=== PATIENT | male | born 1955 | race Caucasian/White ===

== ENCOUNTER 2019-09-26 22:25 | Emergency (ER) | payer OTHER ==
[~2019-09-26] VITALS: Ht 177.8 cm; Wt 83.9 kg
--- NOTE | 2019-09-26 23:12 | PHYS DOC ---
Adult General Chief Complaint Chief Complaint: COUGH HPI HPI 63-year-old male presents with 3-4 day history of cough, nasal congestion, and body aches. The patient started out with just a cough but now has diffuse body aches and a runny nose. It has gotten worse today and he decided to get evaluated. Patient has a history of COPD. He has had productive cough with greenish sputum. He does not believe he's had a fever but has not measured one. He has been on breathing treatments in the past, but is not currently on any. He has no other complaints at this time. Review of Systems Review of Systems Constitutional: Denies fever or chills [] Eyes: Denies change in visual acuity, redness, or eye pain [] HENT: Nasal congestion [] Respiratory: Off with mild shortness of breath [] Cardiovascular: No additional information not addressed in HPI [] GI: Denies abdominal pain, nausea, vomiting, bloody stools or diarrhea [] : Denies dysuria or hematuria [] Musculoskeletal: Denies back pain or joint pain [] Integument: Denies rash or skin lesions [] Neurologic: Denies headache, focal weakness or sensory changes [] Endocrine: Denies polyuria or polydipsia [] All other systems were reviewed and found to be within normal limits, except as documented in this note. Allergies Allergies Allergies Coded Allergies Type Severity Reaction Last Updated Verified Penicillins Allergy Unknown 09/26/19 Yes fish derived Allergy Unknown 09/26/19 Yes Physical Exam Physical Exam Constitutional: Well developed, well nourished, no acute distress, non-toxic appearance. [] HENT: Normocephalic, atraumatic, bilateral external ears normal, oropharynx moist, no oral exudates, nose normal. [] Eyes: PERRLA, EOMI, conjunctiva normal, no discharge. [] Neck: Normal range of motion, no tenderness, supple, no stridor. [] Cardiovascular:Heart rate regular rhythm, no murmur [] Lungs & Thorax: Bilateral breath sounds diminished but clear to auscultation [] Abdomen: Bowel sounds normal, soft, no tenderness, no masses, no pulsatile masses. [] Skin: Warm, dry, no erythema, no rash. [] Back: No tenderness, no CVA tenderness. [] Extremities: No tenderness, no cyanosis, no clubbing, ROM intact, no edema. [] Neurologic: Alert and oriented X 3, normal motor function, normal sensory function, no focal deficits noted. [] Psychologic: Affect normal, judgement normal, mood normal. [] Current Patient Data Vital Signs Vital Signs Date Time Temp Pulse Resp B/P (MAP) Pulse Ox O2 Delivery O2 Flow Rate FiO2 09/26/19 22:46 97.8 74 22 142/72 (95) 97 Room Air EKG EKG [] Radiology/Procedures Radiology/Procedures [] Impressions: Preliminary interpretation chest x-ray: No acute cardiopulmonary findings. Course & Med Decision Making Course & Med Decision Making Pertinent Labs and Imaging studies reviewed. (See chart for details) The patient's labs are unremarkable. His influenza is negative. Given his history of COPD, this could be an early exacerbation or just viral URI with cough. I will treat him with 125 of Solu-Medrol and an albuterol inhaler with spacer. Believe the single treatment should be sufficient given he does not have any wheezing at this time. He is stable for discharge at this time. [] Dragon Disclaimer Dragon Disclaimer This electronic medical record was generated, in whole or in part, using a voice recognition dictation system. Departure Departure: Impression: Primary Impression: Viral URI with cough Disposition: HOME, SELF-CARE Condition: STABLE Referrals: PCPCHARLES (PCP) Patient Instructions: Upper Respiratory Infection, Adult, Lahu-er-Eodv ROLAND JONES DO Sep 26, 2019 23:12
[2019-09-26] MEDS ORDERED: OXYMETAZOLINE 0.05% NASAL SPRAY 15ML BOTTLE. NS ONE (23:15)
[2019-09-27 00:02] LABS: BASO % 1 % (0-3); EOS # 0.3 x10^3/uL (0.0-0.7); EOS % 4 % (0-3); HEMATOCRIT 45.5 % (39.0-53.0); HEMOGLOBIN 15.7 g/dL (13.0-17.5); LYMPH # 2.4 x10^3/uL (1.0-4.8); LYMPH % 33 % (24-48); MEAN CORPUSCULAR HEMOGLOBIN 33 pg (25-35); MEAN CORPUSCULAR HGB CONC 35 g/dL (31-37); MEAN CORPUSCULAR VOLUME 96 fL (79-100); MONO # 0.8 x10^3/uL (0.0-1.1); MONO % 11 % (0-9); NEUT # 3.7 x10^3uL (1.8-7.7); NEUT % 52 % (31-73); PLATELET COUNT 167 x10^3/uL (140-400); RED BLOOD COUNT 4.75 x10^6/uL (4.30-5.70); RED CELL DISTRIBUTION WIDTH 12.7 % (11.5-14.5); WHITE BLOOD COUNT 7.2 x10^3/uL (4.0-11.0)
[2019-09-27 00:10] LABS: CALCIUM 8.5 mg/dL (8.5-10.1); CREATININE 0.9 mg/dL (0.7-1.3); GFR 84.7; POTASSIUM 3.5 mmol/L (3.5-5.1)
[2019-09-27 00:14] LABS: INFLUENZA A PATIENT NEGATIVE (NEGATIVE); INFLUENZA B PATIENT NEGATIVE (NEGATIVE)
[2019-09-27 00:17] LABS: ALBUMIN 3.5 g/dL (3.4-5.0); ALBUMIN/GLOBULIN RATIO 1.3 (1.0-1.7); TOTAL BILIRUBIN 0.4 mg/dL (0.2-1.0); TOTAL PROTEIN 6.3 g/dL (6.4-8.2)
[2019-09-27 00:30] VITALS: BP 138/68
[2019-09-27] MEDS ORDERED: methylPREDNISolone SOD SUCC PF 125 MG/2 ML VIAL. IV ONE (00:30)
[2019-09-27] MEDS ORDERED: ALBUTEROL SULFATE 8GM INHALER. INH ONE (00:30)
[2019-09-27] MEDS ORDERED: methylPREDNISolone SOD SUCC PF 125 MG/2 ML VIAL. ONE (00:35)
[2019-09-27] MEDS ORDERED: ALBUTEROL SULFATE 8GM INHALER. ONE (00:35)
[2019-09-27] MEDS ORDERED: methylPREDNISolone SOD SUCC PF 125 MG/2 ML VIAL. IM ONE (00:45)
--- NOTE | 2019-09-27 07:29 | RAD ---
PA and lateral chest. HISTORY: Cough, short of breath PA and lateral views were taken of the chest. Lungs are free of infiltrates. Heart is normal in size. There is no pleural effusion. There is a nipple shadow on the left. IMPRESSION: 1. No acute infiltrates. Electronically signed by: Bonilla Cummins MD (09/27/2019 7:26 AM) [facility]
== END 2019-09-27 00:48 | disposition home or self-care (01) ==
LOC: ER 22:25 → EDBD 22:25 → ER 09-27 00:48
DX: J06.9 Acute upper respiratory infection, unspecified (principal); B97.89 Other viral agents as the cause of diseases classified elsewhere; Z88.0 Allergy status to penicillin; Z91.013 Allergy to seafood
CPT/HCPCS: 36415; 71046; 80053; 85025; 87804; 94640; 96372; 99285; J2930; J7613; 94664

== ENCOUNTER 2019-11-18 18:26 | Emergency (ER) | payer OTHER ==
[~2019-11-18] VITALS: Ht 177.8 cm; Wt 80.0 kg
--- NOTE | 2019-11-18 18:31 | PHYS DOC ---
Past History Past Medical History: Arthritis, COPD, Other Additional Past Medical Histor: cervical and lumbar disk disease;enlarged prostate Past Surgical History: Lumbar Laminectomy, Other Additional Past Surgical Histo: hypospadius repair;rt ing hernia repair;lt leg and knee repaired--titanium Alcohol Use: None Drug Use: Heroin, Marijuana, Methamphetamine, Other Adult General Chief Complaint Chief Complaint: ".. I slipped on the running board of my van... shaan went down hard.. tore this Rt thumb.... Left knee, left side of my back, chest and my neck. and head...." [facility] HPI Patient is a 64 year old male prisoner from [facility], who presents with above hx and complaints fall on to his running board and van door. Patient has avulsion Laceration right thumb. Distal neurovascular intact. Has contusion to left upper back and chest. Breath sounds equal apex a Midline. Complaints of cervical pain paraspinal and dizziness. Patient has known history of cervical disc disease. Patient ambulatory with limp. Does have pain in left knee. Same knee has had previous surgeries. Can do straight leg lift. Does have extensive ring of left knee. He states he had momentary loss of consciousness or was very stunned. A small abrasion to nose. Patient is up-to-date with tetanus. Review of Systems Review of Systems Constitutional: Denies fever or chills [] Eyes: Denies change in visual acuity, redness, or eye pain [] HENT: Denies nasal congestion or sore throat []. The patient complains of neck and back of head pain Respiratory: Denies cough or shortness of breath [] Cardiovascular: No additional information not addressed in HPI [] GI: Denies abdominal pain, nausea, vomiting, bloody stools or diarrhea [] : Denies dysuria or hematuria [] Musculoskeletal: Complaints of of back pain or joint pain [] Integument: Denies rash or skin lesions [. The]complaints of skin tear right thumb Neurologic: Denies headache, focal weakness or sensory changes [] Endocrine: Denies polyuria or polydipsia [] All other systems were reviewed and found to be within normal limits, except as documented in this note. Family History Family History Noncontributory Current Medications Current Medications See nursing for home meds Allergies Allergies Allergies Coded Allergies Type Severity Reaction Last Updated Verified Penicillins Allergy Unknown 09/26/19 Yes fish derived Allergy Unknown 09/26/19 Yes Physical Exam Physical Exam Constitutional: Moderate acute distress, non-toxic appearance. [] HENT: Normocephalic, bilateral external ears normal, oropharynx moist, no oral exudates, nose abrasion Eyes: PERRLA, EOMI, conjunctiva normal, no discharge. [] Neck: Guarded range of motion, no cervical tenderness, supple, no stridor. [] Cardiovascular:Heart rate regular rhythm, no murmur [] Lungs & Thorax: Bilateral breath sounds equal with scattered wheezes on auscultation [] Abdomen: Bowel sounds normal, soft, no tenderness, no masses, no pulsatile masses. Old scar Skin: Warm, dry, no erythema, no rash. [] Back: No tenderness, no CVA tenderness. [] Extremities: Left knee tenderness, no cyanosis, no clubbing, guarded ROM with left knee, old surgical scars, no edema. [] Small abrasion to right thumb. Neurologic: Alert and oriented X 3, normal motor function, normal sensory function, no focal deficits noted. DTRs +2 patella and brachial. Does have a limping gait Psychologic: Affect anxious, judgement normal, mood normal. []Very concerned that his phone is losing its charge EKG EKG [] Radiology/Procedures Radiology/[place] [address] IMAGING REPORT Signed PATIENT: FRANCE TEAGUE ACCOUNT: [id number] : 1955 LOCATION: ER AGE: 64 SEX: M EXAM STATUS: REG ER ORD. PHYSICIAN: RADHA TOM MD REASON: Fall today, left knee pain. Hx: Fracture 2015 and surgery 2012 PROCEDURE: KNEE LEFT 4V KNEE LEFT 4V DATE: 11/18/2019 6:43 PM INDICATION: Pain COMPARISON: None. FINDINGS/ IMPRESSION: Post surgical changes of total knee arthroplasty. Surgical hardware is intact. No acute fracture. Electronically signed by: Marko Chavez MD (11/18/2019 8:49 PM) [id number] DICTATED AND SIGNED BY: MARKO CHAVEZ MD DATE: 11/18/192048 CC: RADHA TOM MD; PCP,NO ~ [][address] [address] IMAGING REPORT Signed PATIENT: FRANCE TEAGUE ACCOUNT: [id number] : 1955 LOCATION: ER AGE: 64 SEX: M EXAM STATUS: REG ER ORD. PHYSICIAN: RADHA TOM MD REASON: Fall today, chest pain PROCEDURE: CHEST PA & LATERAL CHEST PA LATERAL INDICATION: Fall, chest pain. COMPARISON STUDY: 09/26/2019. FINDINGS: Lungs: Normal lung volume. No pulmonary mass or consolidation. The tracheobronchial tree and hilar structures are normal. Pleura: No pleural effusion or pneumothorax. Heart and Mediastinum: The cardiomediastinal silhouette is normal. The great vessels of the thorax are normal. Bones and Soft Tissues: Degenerative changes of the spine. IMPRESSION: No acute cardiopulmonary process. Electronically signed by: Marko Chavez MD (11/18/2019 8:48 PM) [id number] DICTATED AND SIGNED BY: MARKO CHAVEZ MD DATE: 11/18/192047 CC: RADHA TOM MD; PCP,NO ~ [address] [address] IMAGING REPORT Signed PATIENT: FRANCE TEAGUE ACCOUNT: [id number] : 1955 LOCATION: ER AGE: 64 SEX: M EXAM STATUS: REG ER ORD. PHYSICIAN: RADHA TOM MD REASON: Fall today, dizziness, headache, neck pain, loss of consciousness PROCEDURE: CT HEAD AND CERVICAL SPINE WO CT HEAD AND CERVICAL SPINE WO Date: 11/18/2019 7:27 PM Clinical Indication: Dizzy, fall, trauma, pain Comparison: None. Technique: 5 mm axial tomographic images were obtained of the head without contrast. These were viewed on brain and bone windows. Noncontrast CT of the cervical spine was performed. Sagittal and coronal reformats were performed and evaluated. One or more of the following dose reduction techniques were utilized: Automated exposure control (AEC), Adjustment of mA and/or kV according to patient size, Use of iterative reconstruction technique such as ASiR, CT scan done according to ALARA and image gently/image wisely HEAD FINDINGS: Mild generalized cerebral and cerebellar volume loss. Moderate nonspecific periventricular hypoattenuation, most commonly seen with chronic small vessel ischemic disease. Small left frontal encephalomalacia. No intra- or extra-axial mass or fluid collection. No acute hemorrhage. The ventricles are normal in size, shape, and morphology. The lamar-white matter junction is normal. The basilar cisterns are patent. The visualized paranasal sinuses are normal. The visualized portions of the orbits and globes are normal. The mastoid air cells are clear. No aggressive osseous lesion or fracture. CERVICAL SPINE FINDINGS: Straightening of the cervical lordosis. No acute fracture. No aggressive lytic or blastic osseous lesions. Moderate to severe multilevel degenerative disc space height loss. Multilevel spinal canal stenosis secondary to disc protrusions and marginal osteophytes, worst and severe at C5-6. Multilevel moderate to severe neuroforaminal narrowing secondary to uncovertebral arthrosis. Multilevel moderate facet arthrosis. The thyroid gland is normal. No cervical lymphadenopathy. Bilateral carotid atherosclerosis. The visualized aerodigestive tract is normal. Emphysema. IMPRESSION: 1. No acute intracranial process. 2. No acute cervical spine fracture. 3. Advanced cervical spondylosis with severe spinal canal stenosis at C5-6. Electronically signed by: Marko Chavez MD (11/18/2019 7:53 PM) [id number] DICTATED AND SIGNED BY: MARKO CHAVEZ MD DATE: 11/18/191952 CC: RADHA TOM MD; PCP,NO ~ Course & Med Decision Making Course & Med Decision Making Pertinent Labs and Imaging studies reviewed. (See chart for details) Ice packs as needed. Efrain wrap to knee. Rest, elevation, Tylenol and ibuprofen for pain. Follow-up primary care. Return. He is Polysporin on abrasions 4 times a day. Return if any concerns. Impression: 1. Contusions and abrasions 2. Sprain strain- Back , Lt knee and Cervical [] Mina Disclaimer Dragon Disclaimer This electronic medical record was generated, in whole or in part, using a voice recognition dictation system. Departure Departure: Disposition: 01 HOME/RESIDENCE PRIOR TO ADM Condition: STABLE Referrals: PCPCHARLES (PCP) Mina Disclaimer This chart was dictated in whole or in part using Voice Recognition software in a busy, high-work load, and often noisy Emergency Department environment. It may contain unintended and wholly unrecognized errors or omissions. RADHA TOM MD Nov 18, 2019 18:31
[2019-11-18 18:40] VITALS: BP 128/83
[2019-11-18] MEDS ORDERED: HYDROcodon/IBUPROFEN 7.5/200MG 1 TAB TABLET PO ONE (18:45)
--- NOTE | 2019-11-18 19:57 | RAD ---
CT HEAD AND CERVICAL SPINE WO Date: 11/18/2019 7:27 PM Clinical Indication: Dizzy, fall, trauma, pain Comparison: None. Technique: 5 mm axial tomographic images were obtained of the head without contrast. These were viewed on brain and bone windows. Noncontrast CT of the cervical spine was performed. Sagittal and coronal reformats were performed and evaluated. One or more of the following dose reduction techniques were utilized: Automated exposure control (AEC), Adjustment of mA and/or kV according to patient size, Use of iterative reconstruction technique such as ASiR, CT scan done according to ALARA and image gently/image wisely HEAD FINDINGS: Mild generalized cerebral and cerebellar volume loss. Moderate nonspecific periventricular hypoattenuation, most commonly seen with chronic small vessel ischemic disease. Small left frontal encephalomalacia. No intra- or extra-axial mass or fluid collection. No acute hemorrhage. The ventricles are normal in size, shape, and morphology. The lamar-white matter junction is normal. The basilar cisterns are patent. The visualized paranasal sinuses are normal. The visualized portions of the orbits and globes are normal. The mastoid air cells are clear. No aggressive osseous lesion or fracture. CERVICAL SPINE FINDINGS: Straightening of the cervical lordosis. No acute fracture. No aggressive lytic or blastic osseous lesions. Moderate to severe multilevel degenerative disc space height loss. Multilevel spinal canal stenosis secondary to disc protrusions and marginal osteophytes, worst and severe at C5-6. Multilevel moderate to severe neuroforaminal narrowing secondary to uncovertebral arthrosis. Multilevel moderate facet arthrosis. The thyroid gland is normal. No cervical lymphadenopathy. Bilateral carotid atherosclerosis. The visualized aerodigestive tract is normal. Emphysema. IMPRESSION: 1. No acute intracranial process. 2. No acute cervical spine fracture. 3. Advanced cervical spondylosis with severe spinal canal stenosis at C5-6. Electronically signed by: Raymon Chavez MD (11/18/2019 7:53 PM) [id number]
--- NOTE | 2019-11-18 20:50 | RAD ---
CHEST PA LATERAL INDICATION: Fall, chest pain. COMPARISON STUDY: 09/26/2019. FINDINGS: Lungs: Normal lung volume. No pulmonary mass or consolidation. The tracheobronchial tree and hilar structures are normal. Pleura: No pleural effusion or pneumothorax. Heart and Mediastinum: The cardiomediastinal silhouette is normal. The great vessels of the thorax are normal. Bones and Soft Tissues: Degenerative changes of the spine. IMPRESSION: No acute cardiopulmonary process. Electronically signed by: Raymon Chavez MD (11/18/2019 8:48 PM) [id number]
--- NOTE | 2019-11-18 20:52 | RAD ---
KNEE LEFT 4V DATE: 11/18/2019 6:43 PM INDICATION: Pain COMPARISON: None. FINDINGS/ IMPRESSION: Post surgical changes of total knee arthroplasty. Surgical hardware is intact. No acute fracture. Electronically signed by: Raymon Chavez MD (11/18/2019 8:49 PM) [id number]
== END 2019-11-18 21:25 | disposition home or self-care (01) ==
LOC: ER 18:26
DX: S61.011A Laceration without foreign body of right thumb without damage to nail, initial encounter (principal); S20.222A Contusion of left back wall of thorax, initial encounter; S00.31XA Abrasion of nose, initial encounter; M25.562 Pain in left knee; R51 Headache; J44.9 Chronic obstructive pulmonary disease, unspecified; Z88.0 Allergy status to penicillin; Z91.013 Allergy to seafood; W18.39XA Other fall on same level, initial encounter; Y93.89 Activity, other specified; Y92.89 Other specified places as the place of occurrence of the external cause; Y99.8 Other external cause status
CPT/HCPCS: 70450; 71046; 72125; 73564; 99285

== ENCOUNTER 2021-12-06 23:36 | Emergency (ER) | payer OTHER ==
[~2021-12-06] VITALS: Ht 177.8 cm; Wt 80.0 kg
--- NOTE | 2021-12-06 23:58 | PHYS DOC ---
Past History Past Medical History: Arthritis, COPD, Other Additional Past Medical Histor: cervical and lumbar disk disease;enlarged prostate Past Surgical History: Lumbar Laminectomy, Other Additional Past Surgical Histo: hypospadius repair;rt ing hernia repair;lt leg and knee repaired--titanium Alcohol Use: None Drug Use: Heroin, Marijuana, Methamphetamine, Other Adult General Chief Complaint Chief Complaint: CHEST PAIN HPI HPI Patient is a 66-year-old male with a past medical history of COPD, hypertension and hypercholesterolemia who presents with a chief complaint of 2 days of increased cough, sputum production, shortness of breath and intermittent chest pain when he takes a deep breath in. Denies any recent travels, traumas, illness, fevers, abdominal pain, nausea, vomiting, diarrhea. States he has been smoking for about 40 years. Denies any known ill contacts. States he is eating and drinking normally for him. States he is making urine and stool normally for him. Review of Systems Review of Systems Review of systems otherwise unremarkable except noted in HPI Allergies Allergies Allergies Coded Allergies Type Severity Reaction Last Updated Verified Penicillins Allergy Unknown 09/26/19 Yes fish derived Allergy Unknown 09/26/19 Yes Physical Exam Physical Exam Constitutional: Well developed, well nourished, no acute distress, non-toxic appearance. [] HENT: Normocephalic, atraumatic, oropharynx moist, Eyes: conjunctiva normal, no discharge. [] Neck: Normal range of motion, no tenderness, supple, no stridor. [] Cardiovascular:Heart rate regular rhythm, no murmur [] Lungs & Thorax: Mild bilateral congestion and rhonchi with no wheeze, no increased work of breathing Abdomen: soft, no tenderness, no masses, no pulsatile masses. [] Skin: Warm, dry, no erythema, no rash. [] Back: No tenderness, no CVA tenderness. [] Extremities: No tenderness, no cyanosis, no clubbing, ROM intact, no edema. [] Neurologic: Alert and oriented X 3, no focal deficits noted. [] Psychologic: Affect normal, judgement normal, mood normal. [] EKG EKG [] Radiology/Procedures Radiology/Procedures [] Heart Score C/O Chest Pain: Yes HEART Score for Chest Pain: HEART Score for Chest Pain Response (Comments) Value History Slighlty/Non-Suspicious 0 ECG Normal 0 Age > 65 2 Risk Factors 1 or 2 Risk Factors 1 Troponin < Normal Limit 0 Total 3 Risk Factors: Risk Factors: DM, Current or recent (<one month) smoker, HTN, HLP, family history of CAD, obesity. Risk Scores: Risk Factors: DM, Current or recent (<one month) smoker, HTN, HLP, family history of CAD, obesity. Course & Med Decision Making Course & Med Decision Making Patient is a 66-year-old male who presents with increased cough, sputum production and shortness of breath for the last 2 days Vital signs nonconcerning. Physical exam noted above. EKG with a rate of 60, QRS of 82, QTc of 4 8, no STEMI. Troponin normal. Chest x-ray not concerning History, signs and symptoms suggestive of COPD exacerbation. Given breathing treatment, steroids and started on antibiotics. Discussed COPD and management at home. Advised on [id number] medicines for cough. Discussed that symptoms would probably not farhad and could possibly get worse unless he quit smoking immediately. Advised to follow-up in the morning with his primary care physician. Gave return precautions to the ED. Patient grateful, verbalized understanding and agreed with plan of discharge. [] Dragon Disclaimer Dragon Disclaimer This electronic medical record was generated, in whole or in part, using a voice recognition dictation system. Departure Departure: Impression: Primary Impression: COPD exacerbation Disposition: 01 HOME / SELF CARE / HOMELESS Condition: STABLE Referrals: PCPCHARLES (PCP) OSKAR HOFFMANN MD Patient Instructions: Chronic Obstructive Pulmonary Disease, Chronic Obstructive Pulmonary Disease Exacerbation Additional Instructions: Thank you coming into the emergency department tonight allowing us to take care of you. Please read the attached information carefully to go over things we discussed. Please take antibiotics as prescribed and until gone. Please be sure to use your albuterol at home as prescribed over the next couple of days. As we discussed please stay away from any respiratory irritants such as cigare tte smoke, cleaning supplies and the like. As we discussed it is very important that you do not smoke anymore as if you do not you may not be able to get rid of the symptoms you currently have and, this could make your symptoms worse. Please follow-up in the morning with your primary care physician to discuss your ED visit and COPD management. Please come back with new or concerning symptoms as discussed. Scripts Doxycycline Hyclate (DOXYCYCLINE HYCLATE) 100 Mg Capsule 1 CAP PO BID for COPD, #13 CAP Prov: LOI GONZALES MD 12/07/21 LOI GONZALES MD Dec 06, 2021 23:58
--- NOTE | 2021-12-07 00:21 | RAD ---
EXAMINATION: Chest radiograph. VIEWS: 1 COMPARISON: 11/18/2019 INDICATION:66 years, Male, chest pain. FINDINGS: Normal cardiomediastinal silhouette. Calcified left hilar lymph nodes. Subsegmental atelectasis and/o r scarring in the left lung base, unchanged. No focal consolidation. No pleural effusion or pneumotho rax. No acute osseous process. IMPRESSION: No acute cardiopulmonary process. Electronically signed by: Krzysztof Casas MD (12/07/2021 12:19 AM) [facility]
[2021-12-07 00:22] LABS: BASO % 1 % (0-3); EOS # 0.1 x10^3/uL (0.0-0.7); EOS % 2 % (0-3); HEMOGLOBIN 15.7 g/dL (13.0-17.5); LYMPH # 2.2 x10^3/uL (1.0-4.8); LYMPH % 34 % (24-48); MEAN CORPUSCULAR HEMOGLOBIN 33 pg (25-35); MEAN CORPUSCULAR HGB CONC 34 g/dL (31-37); MEAN CORPUSCULAR VOLUME 95 fL (79-100); MONO # 0.7 x10^3/uL (0.0-1.1); MONO % 10 % (0-9); NEUT # 3.4 x10^3uL (1.8-7.7); NEUT % 53 % (31-73); PLATELET COUNT 156 x10^3/uL (140-400); RED BLOOD COUNT 4.82 x10^6/uL (4.30-5.70); RED CELL DISTRIBUTION WIDTH 13.6 % (11.5-14.5); WHITE BLOOD COUNT 6.4 x10^3/uL (4.0-11.0)
[2021-12-07] MEDS ORDERED: DOXY100C3 PO (00:28)
[2021-12-07] MEDS ORDERED: IPRATRPIUM/ALBUTEROL 0.5/2.5MG 3 ML NEBU. NEB ONE (00:30)
[2021-12-07] MEDS ORDERED: DEXAMETHASONE 4 MG TABLET PO ONE (00:30)
[2021-12-07 00:32] LABS: CALCIUM 8.9 mg/dL (8.5-10.1); CREATININE 0.9 mg/dL (0.7-1.3); GFR 83.9; MAGNESIUM 2.2 mg/dL (1.8-2.4); POTASSIUM 3.7 mmol/L (3.5-5.1)
[2021-12-07 00:38] VITALS: BP 127/65
--- NOTE | 2021-12-07 00:50 | EKG ---
[address] [address] Test Date: 2021-12-06 Test Time: 23:49:07 Pat Name: FRANCE TEAGUE Department: Room: Gender: M Biomass Technician: FERNANDO : 1955 Requested By: LOI GONZALES Order Number: [id number] Reading MD: Rudy Sosa Measurements Intervals [place] Rate: 60 P: 53 GA: 166 QRS: 47 QRSD: 82 T: 58 QT: 404 QTc: 408 Interpretive Statements SINUS RHYTHM Electronically Signed On 12-07-2021 8:22:38 PALLETISER OPERATOR by Rudy Sosa
[2021-12-07] MEDS ORDERED: DOXYCYCLINE HYCLATE 100 MG TABLET PO ONE (01:00)
== END 2021-12-07 00:48 | disposition home or self-care (01) ==
LOC: ER 23:36
DX: J44.1 Chronic obstructive pulmonary disease with (acute) exacerbation (principal); M19.90 Unspecified osteoarthritis, unspecified site; I10 Essential (primary) hypertension; E78.00 Pure hypercholesterolemia, unspecified; Z88.0 Allergy status to penicillin; Z91.013 Allergy to seafood
CPT/HCPCS: 36415; 71045; 80048; 83735; 84484; 85025; 93005; 94640; 99285; J8540

== ENCOUNTER 2021-12-09 21:53 | Emergency (ER) | payer OTHER ==
[~2021-12-09] VITALS: Ht 177.8 cm; Wt 80.0 kg
[~2021-12-09 21:53] MED LIST: DOXY100C3 PO
--- NOTE | 2021-12-09 21:55 | PHYS DOC ---
Past History Past Medical History: Arthritis, COPD, Other Additional Past Medical Histor: cervical and lumbar disk disease;enlarged prostate, SPINAL STENOSIS Past Surgical History: Knee Replacement, Lumbar Laminectomy, Other Additional Past Surgical Histo: hypospadius repair;rt ing hernia repair;lt leg and knee repaired--titanium Alcohol Use: None Drug Use: Heroin, Marijuana, Methamphetamine, Other General Adult HPI: HPI: "'' I tripped and fell.. face planted into the concrete.. scuffed up my nose, .. my Lt hand.. but I mainly concerned about my knee.s. " " I forgot my cell phone in the car.. had turned and tripped on the curb.. " and slid on patch of ice.." Patient is a 66 year old male who presents with hx of trip and fall . Patient has contusion to face. States if he had loss of consciousness his only seconds. Has abrasion to nose. Some upper neck tenderness. Abrasions to right hand. Bilateral contusions to both knees and abrasions. Patient denies other injury. Patient states his tetanus was up-to-date as of a year ago. No recent travel. No significant ill contacts. No history immunosuppression. Does have a past medical history of cervical laminectomy lumbar laminectomy enlarged prostate, arthritis, COPD, hypospadia, inguinal hernia, left knee replacement, tobacco, marijuana and methamphetamine use. Review of Systems: Review of Systems: Constitutional: Denies fever or chills Eyes: Denies change in visual acuity HENT: Complains of facial contusion Respiratory: Denies cough or shortness of breath Cardiovascular: Denies chest pain or edema GI: Denies abdominal pain, nausea, vomiting, bloody stools or diarrhea : Denies dysuria Musculoskeletal: Complains of right hand abrasion and contusion and bilateral knee contusions Integument: Denies rash Neurologic: Denies headache, focal weakness or sensory changes Endocrine: Denies polyuria or polydipsia Lymphatic: Denies swollen glands Psychiatric: Denies depression or anxiety Family History: Family History: Noncontributory to presentation Current Medications: Current Meds: See nursing for home meds Allergies: Allergies: Allergies Coded Allergies Type Severity Reaction Last Updated Verified Penicillins Allergy Intermediate 12/07/21 Yes fish derived Allergy Intermediate 12/07/21 Yes Physical Exam: PE: Constitutional: Mild/ moderate acute distress, non-toxic appearance. [] HENT: Normocephalic, abrasion and contusion to nose, bilateral external ears normal, oropharynx moist, no oral exudates, no septal hematoma. Eyes: PERRLA, EOMI, conjunctiva normal, no discharge. [] Neck: Normal range of motion, upper neck tenderness, supple, no stridor. Surgical scar Cardiovascular:Heart rate regular rhythm, no murmur [] Lungs & Thorax: Bilateral breath sounds equal apex scattered wheezes auscultation [] Abdomen: Bowel sounds normal, soft, no tenderness, no masses, no pulsatile masses. Scar Skin: Warm, dry, no erythema, no rash. Tattoos Back: No tenderness, no CVA tenderness. [] Extremities: Bilateral knee tenderness, no cyanosis, no clubbing, ROM intact, bilateral knee edema. [] Scar left knee. Abrasions bilateral knee can do straight leg lift. Is ambulatory with limp Neurologic: Alert and oriented X 3, moves all extremities on request, has distal sensory, no focal deficits noted. [] Psychologic: Affect anxious, judgement normal, mood normal. [] EKG: EKG: [] Radiology/Procedures: Radiology/Procedures: [place] [address] IMAGING REPORT Signed PATIENT: FRANCE TEAGUE ACCOUNT: [id number] : 1955 LOCATION: ER AGE: 66 SEX: M EXAM STATUS: REG ER ORD. PHYSICIAN: RADHA TOM MD REASON: Fall, right hand pain PROCEDURE: HAND RIGHT 3V Bilateral knee x-rays 4 views each HISTORY: Fall, bilateral knee pain and abrasions. FINDINGS: Right knee demonstrates no fracture. No dislocation. Mild bone spurring at the patella. Small enthesophyte quadriceps tendon insertion of the upper patella. Mild joint space narrowing at the medial compartment and medial meniscus chondrocalcinosis. Left knee demonstrates total knee arthroplasty. No loosening of the hardware with no bone lysis adjacent to the hardware. No periprosthetic fracture. Soft tissues demonstrate mild calcification quadrant and insertion likely from tendinopathy. IMPRESSION: No acute osseous injury of the knees. Left knee arthroplasty. Right hand x-rays 3 views HISTORY: Fall, right hand pain. FINDINGS: No fracture. No dislocation. 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 Soft tissues unremarkable. IMPRESSION: No acute osseous injury of the right hand. Electronically signed by: Angela Hill MD (12/09/2021 11:26 PM) [facility] DICTATED AND SIGNED BY: ANGELA HILL MD DATE: 12/09/212 CC: RADHA TOM MD; PCP,NO ~MTH0 [address] [address] IMAGING REPORT Signed PATIENT: FRANCE TEAGUE ACCOUNT: [id number] : 1955 LOCATION: ER AGE: 66 SEX: M EXAM STATUS: REG ER ORD. PHYSICIAN: RADHA OTM MD REASON: face plant into concrete side walk, headache and neck pain PROCEDURE: CT HEAD AND CERVICAL SPINE WO CT head without contrast. CT cervical spine without contrast. PQRS statement: CT scans at this facility use dose reduction including either automated exposure control, iterative reconstructions, and /or weight based radiation dosing via mA and kV modification when appropriate to reduce radiation dose to as low as reasonably achievable. HISTORY: Fell and hit head, headache, neck pain. CT findings: No intracranial hemorrhage, mass or hydrocephalus. There is a small focus of encephalomalacia left anterior frontal lobe likely a chronic ischemic infarct. There is extensive cerebral white matter hypoattenuation may be advanced changes of chronic microvascular ischemic disease or demyelinating disease. Encephalomalacia of the left anterior inferior frontal lobe overlying orbital roof likely from old trauma or chronic infarct. Orbits, mastoids and bones are normal. IMPRESSION: No acute traumatic intracranial CT abnormality. See above. CT cervical spine findings: Craniocervical junction is intact. Cervical vertebral body height and alignment intact. No fracture of the cervical spine. Apical pulmonary emphysema. Cervical disc osteophyte as well as soft disc herniations, uncovertebral and facet spurring with spinal canal and neural foraminal stenosis with severe stenotic disease several levels the degree of spinal canal stenosis likely increases the risk of spinal cord impingement at C5-C6. Paraspinal tissues are normal. IMPRESSION: No acute osseous injury of the cervical spine. Cervical disc disease as described above. Electronically signed by: Angela Hill MD (12/09/2021 11:11 PM) [facility] DICTATED AND SIGNED BY: ANGELA HILL MD DATE: 12/09/212304 CC: RADHA TOM MD; PCP,NO ~MTH0 0 [][place] [address] IMAGING REPORT Signed PATIENT: FRANCE TEAGUE ACCOUNT: [id number] : 1955 LOCATION: ER AGE: 66 SEX: M EXAM STATUS: REG ER ORD. PHYSICIAN: RADHA TOM MD REASON: Fall, bilateral knee pain with abrasions PROCEDURE: KNEE BILAT 4V Bilateral knee x-rays 4 views each HISTORY: Fall, bilateral knee pain and abrasions. FINDINGS: Right knee demonstrates no fracture. No dislocation. Mild bone spur ring at the patella. Small enthesophyte quadriceps tendon insertion of the upper patella. Mild joint space narrowing at the medial compartment and medial meniscus chondrocalcinosis. Left knee demonstrates total knee arthroplasty. No loosening of the hardware with no bone lysis adjacent to the hardware. No periprosthetic fracture. Soft tissues demonstrate mild calcification quadrant and insertion likely from tendinopathy. IMPRESSION: No acute osseous injury of the knees. Left knee arthroplasty. Right hand x-rays 3 views HISTORY: Fall, right hand pain. FINDINGS: No fracture. No dislocation. 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 Soft tissues unremarkable. IMPRESSION: No acute osseous injury of the right hand. Electronically signed by: Angela Hill MD (12/09/2021 11:26 PM) [facility] AND SIGNED BY: ANGELA HILL MD DATE: 12/09/212322 CC: RADHA TOM MD; PCP,NO ~MTH0 0 Heart Score: C/O Chest Pain: N/A Risk Factors: Risk Factors: DM, Current or recent (<one month) smoker, HTN, HLP, family history of CAD, obesity. Risk Scores: Score 0 - 3: 2.5% MACE over next 6 weeks - Discharge Home Score 4 - 6: 20.3% MACE over next 6 weeks - Admit for Clinical Observation Score 7 - 10: 72.7% MACE over next 6 weeks - Early Invasive Strategies Course & Med Decision Making: Course & Med Decision Making Pertinent Labs and Imaging studies reviewed. (See chart for details) Wound care -abrasions cleaned with peroxide and Betadine. Keep abrasions clean and dry. Apply Polysporin 4 times a day until healed. Use ice packs as needed. Tylenol and ibuprofen for pain. Follow-up primary care. Return if any concerns. Impression: 1. Head injury-abrasions and contusions 2. Right hand contusion and abrasion 3. Bilateral knee contusions and abrasions 4. History of trip and fall [] Dragon Disclaimer: Dragon Disclaimer: This electronic medical record was generated, in whole or in part, using a voice recognition dictation system. Departure Departure: Referrals: PCP,NO (PCP) Dragon Disclaimer This chart was dictated in whole or in part using Voice Recognition software in a busy, high-work load, and often noisy Emergency Department environment. It may contain unintended and wholly unrecognized errors or omissions. Dragon Disclaimer This chart was dictated in whole or in part using Voice Recognition software in a busy, high-work load, and often noisy Emergency Department environment. It may contain unintended and wholly unrecognized errors or omissions. Dragon Disclaimer This chart was dictated in whole or in part using Voice Recognition software in a busy, high-work load, and often noisy Emergency Department environment. It may contain unintended and wholly unrecognized errors or omissions. Dragon Disclaimer This chart was dictated in whole or in part using Voice Recognition software in a busy, high-work load, and often noisy Emergency Department environment. It may contain unintended and wholly unrecognized errors or omissions. Dragon Disclaimer This chart was dictated in whole or in part using Voice Recognition software in a busy, high-work load, and often noisy Emergency Department environment. It may contain unintended and wholly unrecognized errors or omissions. RADHA TOM MD Dec 09, 2021 21:55
[2021-12-09 22:14] VITALS: BP 118/67
[2021-12-09] MEDS ORDERED: ACETAMINOPHEN 500 MG TABLET PO ONE (23:00)
--- NOTE | 2021-12-09 23:14 | RAD ---
CT head without contrast. CT cervical spine without contrast. PQRS statement: CT scans at this facility use dose reduction including either automated exposure cont rol, iterative reconstructions, and /or weight based radiation dosing via mA and kV modification when appropriate to reduce radiation dose to as low as reasonably achievable. HISTORY: Fell and hit head, headache, neck pain. CT findings: No intracranial hemorrhage, mass or hydrocephalus. There is a small focus of encephaloma lacia left anterior frontal lobe likely a chronic ischemic infarct. There is extensive cerebral white matter hypoattenuation may be advanced changes of chronic microvascular ischemic disease or demyelin ating disease. Encephalomalacia of the left anterior inferior frontal lobe overlying orbital roof lik skylar from old trauma or chronic infarct. Orbits, mastoids and bones are normal. IMPRESSION: No acute traumatic intracranial CT abnormality. See above. CT cervical spine findings: Craniocervical junction is intact. Cervical vertebral body height and ali gnment intact. No fracture of the cervical spine. Apical pulmonary emphysema. Cervical disc osteophyt e as well as soft disc herniations, uncovertebral and facet spurring with spinal canal and neural for aminal stenosis with severe stenotic disease several levels the degree of spinal canal stenosis likel y increases the risk of spinal cord impingement at C5-C6. Paraspinal tissues are normal. IMPRESSION: No acute osseous injury of the cervical spine. Cervical disc disease as described above. Electronically signed by: Juaquin Hill MD (12/09/2021 11:11 PM) [facility]
--- NOTE | 2021-12-09 23:28 | RAD ---
Bilateral knee x-rays 4 views each HISTORY: Fall, bilateral knee pain and abrasions. FINDINGS: Right knee demonstrates no fracture. No dislocation. Mild bone spurring at the patella. Sma ll enthesophyte quadriceps tendon insertion of the upper patella. Mild joint space narrowing at the m edial compartment and medial meniscus chondrocalcinosis. Left knee demonstrates total knee arthroplasty. No loosening of the hardware with no bone lysis adjac ent to the hardware. No periprosthetic fracture. Soft tissues demonstrate mild calcification quadrant and insertion likely from tendinopathy. IMPRESSION: No acute osseous injury of the knees. Left knee arthroplasty. Right hand x-rays 3 views HISTORY: Fall, right hand pain. FINDINGS: No fracture. No dislocation. 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 Soft tissues unremarkab le. IMPRESSION: No acute osseous injury of the right hand. Electronically signed by: Juaquin Hill MD (12/09/2021 11:26 PM) [facility]
== END 2021-12-09 23:45 | disposition home or self-care (01) ==
LOC: ER 21:53
DX: S00.33XA Contusion of nose, initial encounter (principal); S80.02XA Contusion of left knee, initial encounter; S80.01XA Contusion of right knee, initial encounter; S60.221A Contusion of right hand, initial encounter; M19.90 Unspecified osteoarthritis, unspecified site; J44.9 Chronic obstructive pulmonary disease, unspecified; Z88.0 Allergy status to penicillin; Z91.013 Allergy to seafood; W01.198A Fall on same level from slipping, tripping and stumbling with subsequent striking against other object, initial encounter; Y93.89 Activity, other specified; Y92.89 Other specified places as the place of occurrence of the external cause; Y99.8 Other external cause status
CPT/HCPCS: 70450; 72125; 73130; 99284; 73564-50

== ENCOUNTER 2022-02-20 13:58 | Emergency (ER) | payer OTHER ==
[~2022-02-20] VITALS: Ht 175.3 cm; Wt 84.0 kg
--- NOTE | 2022-02-20 14:58 | PHYS DOC ---
Past History Past Medical History: Arthritis, COPD, Other Additional Past Medical Histor: cervical and lumbar disk disease;enlarged prostate, SPINAL STENOSIS Past Surgical History: Knee Replacement, Lumbar Laminectomy, Other Additional Past Surgical Histo: hypospadius repair;rt ing hernia repair;lt leg and knee repaired--titanium Alcohol Use: None Drug Use: Heroin, Marijuana, Methamphetamine, Other General Adult HPI: HPI: Patient is a 66-year-old male coming in for dressing change suprapubic catheter. Patient had the catheter placed 3 days ago at for urinary retention, has a follow-up appointment with the urologist. Patient return to yesterday for pain to the site. The dressing was partially removed and he left AMA prior to having it replaced. Patient at that time was having concerns for urine and skin infection, was discharged with cephalexin to cover urine and skin infection. Review of Systems: Review of Systems: All other systems within normal limits except for as noted in the HPI Allergies: Allergies: Allergies Coded Allergies Type Severity Reaction Last Updated Verified Penicillins Allergy Intermediate 12/07/21 Yes fish derived Allergy Intermediate 12/07/21 Yes Physical Exam: PE: Constitutional: Well developed, well nourished, no acute distress, non-toxic appearance. [] HENT: Normocephalic, atraumatic, bilateral external ears normal, nose normal. [] Eyes: PERRLA, conjunctiva normal, no discharge. [] Neck: No rigidity, supple, no stridor. [] Cardiovascular: Regular rate and rhythm, brisk cap refill [] Lungs & Thorax: Non labored symmetric respirations, no tachypnea or respiratory distress [] Abdomen: Soft, nondistended. Skin: Warm, dry, no erythema, no rash. [] Mild erythema around suprapubic catheter, dressing consisting of gauze and Tegaderm partially in place Back: Unremarkable Extremities: No deformities, range of motion grossly intact, no lower extremity edema [] Neurologic: Alert and oriented X 3, no focal deficits noted. [] Psychologic: Affect normal, judgement normal, mood normal. [] EKG: EKG: [] Radiology/Procedures: Radiology/Procedures: [] Heart Score: C/O Chest Pain: No Risk Factors: Risk Factors: DM, Current or recent (<one month) smoker, HTN, HLP, family hi story of CAD, obesity. Risk Scores: Score 0 - 3: 2.5% MACE over next 6 weeks - Discharge Home Score 4 - 6: 20.3% MACE over next 6 weeks - Admit for Clinical Observation Score 7 - 10: 72.7% MACE over next 6 weeks - Early Invasive Strategies Course & Med Decision Making: Course & Med Decision Making Pertinent Labs and Imaging studies reviewed. (See chart for details) [] Dragon Disclaimer: Dragon Disclaimer: This electronic medical record was generated, in whole or in part, using a voice recognition dictation system. Departure Departure: Impression: Primary Impression: Dressing change Disposition: HOME / SELF CARE / HOMELESS Condition: STABLE Referrals: PCP,NO (PCP) Patient Instructions: Dressing Change SOBEIDA OLMSTEAD MD February 20, 2022 14:58
[2022-02-20 15:15] VITALS: BP 121/62
== END 2022-02-20 15:15 | disposition home or self-care (01) ==
LOC: ER 13:58
DX: Z48.00 Encounter for change or removal of nonsurgical wound dressing (principal); M19.90 Unspecified osteoarthritis, unspecified site; J44.9 Chronic obstructive pulmonary disease, unspecified; Z88.0 Allergy status to penicillin; Z91.013 Allergy to seafood
CPT/HCPCS: 99282